=== PATIENT | male | born 1990 | race Two or more races ===

== ENCOUNTER 2016-12-26 22:06 | Emergency (ER) | payer SELFPAY ==
--- NOTE | 2016-12-26 22:23 | EDM.PDOC ---
ED HPI GENERAL MEDICAL PROBLEM - General Chief Complaint: Genitourinary Problem Stated Complaint: RIGHT TESTICAL SWOLLEN Time Seen by Provider: 12/26/16 22:22 Source of Information: Reports: Patient History Limitations: Reports: No Limitations - History of Present Illness INITIAL COMMENTS - FREE TEXT/NARRATIVE: 18-year-old male presents the ED with painful swollen right testicle over the last 4 days. This was preceded by some difficulty voiding and a feeling of incomplete emptying of his urinary bladder. Previous similar problems. No injuries or trauma to the testicle. States the first day her quite badly but subsequently his become more swollen and doesn't hurt quite as badly. Still painful to walk. Denies any dysuria urgency or frequency. Onset: Gradual Onset Date: 12/21/16 Duration: Day(s): Location: Reports: Other (Right testicle swelling and pain) Quality: Reports: Ache, Pressure, Throbbing Severity: Moderate Improves with: Reports: None (Grades the pain is 5 out of 10.) Worsens with: Reports: Movement Context: Denies: Activity, Exercise, Lifting, Sick Contact, Trauma, Other Associated Symptoms: Reports: No Other Symptoms Treatments DIRECTOR OF SUSTAINABILITY PROGRAMS: Reports: NSAIDS Right Pain Score (Numeric/FACES): 4 - Related Data Allergies Allergy/AdvReac Type Severity Reaction Status Date / Time No Known Allergies Allergy Verified 12/26/16 22:22 Home Meds: Home Meds Ciprofloxacin HCl [Cipro] 500 mg PO BID #28 tablet 12/26/16 [Rx] Diclofenac Sodium [Voltaren] 50 mg PO BIDMEALS #24 tab.ec 12/26/16 [Rx] Doxycycline [Vibramycin] 100 mg PO Q12HR #60 cap 12/26/16 [Rx] Social & Family History - Living Situation & Occupation Living situation: Reports: Single ED ROS GENERAL - Review of Systems Review Of Systems: See Below Constitutional: Denies: Fever, Chills, Malaise, Weakness, Fatigue, Diaphoresis, Decreased Appetite, Weight Loss HEENT: Reports: No Symptoms Respiratory: Reports: No Symptoms Cardiovascular: Reports: No Symptoms Endocrine: Reports: No Symptoms GI/Abdominal: Reports: Abdominal Pain : Reports: Dysuria, Pain, Other (Right testicle right testicle is swollen and painful). Denies: Flank Pain, Frequency, Hematuria, Urgency, Urinary Retention Musculoskeletal: Reports: No Symptoms Skin: Reports: No Symptoms Neurological: Reports: No Symptoms ED EXAM, RENAL/ - Physical Exam Exam: See Below Exam Limited By: No Limitations General Appearance: Alert, WD/WN, No Apparent Distress GI/Abdominal: Normal Bowel Sounds, Soft, Non-Tender, No Organomegaly, No Distention, No Abnormal Bruit, No Mass, Pelvis Stable, Other (Inguinal adenopathy.) (Male) Exam: No Hernia, Cremasteric Reflex, Scrotum Tenderness (R), Testicular Tenderness (R) (Right testicle is grossly swollen proximally 5 times the size of the left testicle. It transilluminates mildly with light.) Back Exam: Normal Inspection, Full Range of Motion. No: CVA Tenderness (L), CVA Tenderness (R) Extremities: Normal Inspection, Normal Range of Motion, Non-Tender, Normal Capillary Refill Neurological: Alert, Oriented, CN II-XII Intact, Normal Cognition, Normal Gait Course - Vital Signs Last Recorded V/S: Last Vital Signs Temp 36.1 C 12/26/16 22:27 Pulse 102 H 12/26/16 22:27 Resp 20 12/26/16 22:27 BP 145/89 H 12/26/16 22:27 Pulse Ox 98 12/26/16 22:27 - Orders/Labs/Meds Labs: Laboratory Tests 12/26/16 Range/Units 22:35 Urine Color Yellow (Yellow) Urine Appearance Cloudy H (Clear) Urine pH 6.5 (5.0-8.0) Ur Specific [place] > or = 1.030 (1.005-1.030) Urine Protein 2+ H (Negative) Urine Glucose (UA) Negative (Negative) Urine Ketones Negative (Negative) Urine Occult Blood 2+ H (Negative) Urine Nitrite Positive H (Negative) Urine Bilirubin Negative (Negative) Urine Urobilinogen 1.0 (0.2-1.0) Ur Leukocyte Esterase 1+ H (Negative) Urine RBC 0-5 (0-5) /hpf Urine WBC >100 H (0-5) /hpf Ur Epithelial Cells Not seen (0-5) /hpf Urine Bacteria Many H (FEW) /hpf Urine Mucus Moderate H (FEW) /hpf Meds: Medications Discontinued Medications Generic Name Dose Route Start Last Admin Trade Name Freq PRN Reason Stop Dose Admin Levofloxacin 500 mg 12/26/16 23:00 Levaquin PO 12/26/16 23:01 ONETIME ONE - Radiology Interpretation Free Text/Narrative:: 26-year-old male presents the ED with gradually swollen right testicle with pain. This was preceded by some difficulty voiding with hesitancy and a feeling of incomplete bladder emptying. Also had some initial dysuria but denies it dysuria the last few days. ReVia similar problems. On examination he has a right epididymoorchitis with a reactive hydrocele. Transilluminates with light. Right testicle in scrotal mass is partially 5 times larger than the left testicle. The left testicle is completely within normal limits. The testicle and right scrotal mass or filling the entire right side of the scrotum laminating ability to palpate the true epididymitis. I therefore performed a ultrasound at the bedside revealing a homogeneous texture to the testicle itself and evidence of swelling of both the inferior and superior poles of the epididymides with surrounding debris and vascular distention. Is a moderate reactive hydrocele. Urinalysis ordered. - Re-Assessments/Exams Free Text/Narrative Re-Assessment/Exam: 12/26/16 23:24 urinalysis is positive for nitrates 2+ blood and greater than 100 white blood cells per high-power field and many bacteria urine culture ordered. We'll also check for chlamydia and gonorrhea by PCR evaluation. Clinically he has an acute prostatitis with retrograde infection of the right testicle. He'll be treated with Cipro 500 mg twice daily for 14 days and then doxycycline 100 mg twice daily for another month for a total of 6 weeks of treatment to try and eradicate prostate infection. Use Voltaren 50 mg twice a day for 12 days to reduce pain and inflammation. Eyes follow-up in 6 weeks' time if the testicle has not returned back to its normal self. He is to expect the pain to gradually resolve over the next 10 days. Departure - Departure Time of Disposition: 22:47 Disposition: Home, Self-Care 01 Condition: Fair Clinical Impression: Epididymo-orchitis, acute Prostatitis Qualifiers: Prostatitis type: acute Qualified Code(s): N41.0 - Acute prostatitis - Discharge Information Prescriptions: Doxycycline [Vibramycin] 100 mg PO Q12HR #60 cap Ciprofloxacin HCl [Cipro] 500 mg PO BID #28 tablet Diclofenac Sodium [Voltaren] 50 mg PO BIDMEALS #24 tab.ec Instructions: Orchitis, Epididymitis Referrals: PCP,None [Primary Care Provider] - Forms: ED Department Discharge Additional Instructions: Evaluation the emergent tonight in regards to development of painful swollen right testicle with some intermittent troubles voiding predating the right testicular swelling and pain. This suggests prostate infection which is spread retrograde down to the testicle and involving the epididymis which is a mile of tubing behind the testicle. Ultrasound reveals the testicle to be otherwise normal with no signs of cancer. The epididymis both superior and inferior poles are grossly swollen and inflamed and there is reactive fluid around the testicle causing the swelling. Treatment is anti-inflammatory Voltaren 50 g twice daily for the next 12 days to reduce pain and inflammation. Antibiotics are to be Cipro 500 mg twice daily for the next 12-14 days and then after this start doxycycline 100 mg twice daily for a month for 6 weeks of total antibiotics to eradicate prostate infection so that this doesn't come back right away again. If you get this once you're prone to getting epididymitis again in the future. At the testicle was not back to its normal size and the swelling is not completely resolved in 6 weeks' time you need to be seen again by a physician.
[2016-12-26] MEDS ORDERED: Levofloxacin 500 MG Tab PO ONE (23:00)
== END 2016-12-26 23:17 | disposition home or self-care (01) ==
LOC: JD.ED 22:06
DX: N45.3 Epididymo-orchitis (principal); N41.0 Acute prostatitis
CPT/HCPCS: 81001; 87086; 87088; 87186; 99284; A9270; 99283